=== PATIENT | female | born 2000 | race Caucasian/White ===

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

== ENCOUNTER 2021-07-22 20:12 | Emergency (ER) | payer OTHER ==
[2021-07-22 21:06] LABS: BILIRUBIN,URINE NEGATIVE (NEGATIVE); CLARITY,URINE CLEAR (CLEAR); GLUCOSE, URINE (UA) NEGATIVE (NEGATIVE); KETONES,URINE (UA) NEGATIVE (NEGATIVE); LEUKOCYTE ESTERASE, URINE NEGATIVE (NEGATIVE); NITRITE,URINE NEGATIVE (NEGATIVE); OCCULT BLOOD,URINE LARGE (NEGATIVE); PROTEIN,URINE NEGATIVE (NEGATIVE); UROBILINOGEN,URINE 0.2 (NORMAL) E.U./dL (NORMAL)
[2021-07-22 21:07] LABS: HCG UR QUAL NEGATIVE
[2021-07-22 21:11] LABS: BACTERIA,URINE Few /HPF (None Seen); SQUAMOUS EPITHELIAL CELL,UR FEW Squamous (<= Few); WBC,URINE 0-3 /HPF (0-5)
--- NOTE | 2021-07-22 21:26 | ED Physician Documentation ---
PD HPI FEMALE - Stated complaint Stated Complaint: FEMALE - Chief complaint Chief Complaint: Abd Pain - History obtained from History obtained from: Patient - Additional information Additional information: Patient without significant past medical history presenting for evaluation of lower abdominal cramping for 2 days. Patient was using a vibrator on herself 2 days ago when she felt a pop sensation in the left pelvis and since that time has been having light vaginal spotting and cramping.She is only needed to use a panty liner. She had a Sara IUD removed in January and since that time has had irregular periods. She denies abnormal vaginal discharge. She denies concerns for or STDs.Nothing makes her symptoms better or worse.There is no radiation to the pain. There is no nausea or vomiting.No fever, no dysuria. Review of Systems Constitutional: denies: Fever Nose: denies: Congestion Cardiac: denies: Chest pain / pressure Respiratory: denies: Cough GI: denies: Abdominal Pain, Vomiting : reports: Irregular menses. 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 : None HEENT: None Psych: Depression Musculoskeletal: None Derm: None - Past Surgical History Past Surgical History: Yes HEENT: Tonsil/Adenoidectomy - Present Medications Home Medications: Ambulatory Orders Medication Instructions Recorded Confirmed FLUoxetine [PROzac] 10 mg PO DAILY 06/22/18 06/22/18 busPIRone [Buspar] 5 mg PO BID 07/22/21 07/22/21 - Allergies Allergies/Adverse Reactions: Allergies Allergy/AdvReac Type Severity Reaction Status Date / Time No Known Drug Allergies Allergy Verified 07/22/21 20:17 - Social History Does the pt smoke?: No Smoking Status: Never smoker Does the pt drink ETOH?: No Does the pt have substance abuse?: No - Immunizations Immunizations are current?: Yes - POLST Patient has POLST: No PD ED PE NORMAL - General General: Alert and oriented X 3, No acute distress, Well developed/nourished - HEENT HEENT: Atraumatic, Moist mucous membranes - Neck Neck: Supple, no meningeal sign - Cardiac Cardiac: RRR, Strong equal pulses - Respiratory Respiratory: No respiratory distress, Clear bilaterally - Abdomen Abdomen: Normal bowel sounds, Soft, Non tender - Female Female : Dot Etcher Apprentice 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 (APRIL Dickey), Other (Normal external exam,No vaginal lesions or tenderness,Small amount of blood in vaginal canal, normal-appearing cervix, no foreign bodies, No CMT, no adnexal tenderness or mass) Results - Vitals Vitals: Vital Signs - 24 hr 07/22/21 07/22/21 07/22/21 20:18 20:32 21:32 Temperature 37.1 C 37 C Heart Rate 100 80 72 Respiratory 14 18 17 Rate Blood Pressure 139/93 H 139/88 H 131/70 H O2 Saturation 98 100 99 Oxygen O2 Source Room air - Labs Labs: Laboratory Tests 07/22/21 20:25 Urine Color YELLOW Urine Clarity CLEAR Urine pH 6.0 Ur Specific [place] 1.025 Urine Protein NEGATIVE Urine Glucose (UA) NEGATIVE Urine Ketones NEGATIVE Urine Occult Blood LARGE H Urine Nitrite NEGATIVE Urine Bilirubin NEGATIVE Urine Urobilinogen 0.2 (NORMAL) Ur Leukocyte Esterase NEGATIVE Urine RBC 6-10 H Urine WBC 0-3 Ur Squamous Epith Cells FEW Squamous Urine Bacteria Few Ur Microscopic Review INDICATED Urine Culture Comments NOT INDICATED Urine HCG, Qual NEGATIVE PD MEDICAL DECISION MAKING - ED course ED course: Patient presenting for evaluation of spotting and cramping after using a vibrator 2 days ago.Her abdominal exam is benign and without peritoneal sig ns.There is no reproducible tenderness. Her pelvic exam is unremarkable with no tenderness suggestive of ovarian torsion, hemoperitoneum.Her test is negative. I did offer an ultrasound to evaluate for the presence of an ovarian cyst As that is what her history is suggestive of. However as the patient did not have pain on exam, she agreed to hold off on further testing at this time. She understands strict return precautions if the pain is to return or worsen Or if she were to develop any other symptoms. Departure - Departure Disposition: 01 Home, Self Care Clinical Impression: Pelvic pain in female Condition: Stable Instructions: ED Pelvic Pain [facility] Comments: The exact cause Of your pelvic pain is unclear at this time. It could have been from an ovarian cyst. The pain appears to be improving, which is reassuring and You did not have pain during the exam. As we have discussed, If your pain at any time changes or worsens you should return to the emergency department. I would recommend avoiding any sexual intercourse until the pain has fully resolved. You can try motrin or tylenol for pain. Discharge Date/Time: 07/22/21 21:32
[2021-07-22 21:33] VITALS: BP 131/70
== END 2021-07-22 21:32 | disposition home or self-care (01) ==
LOC: ED 20:12
DX: R10.2 Pelvic and perineal pain (principal)
CPT/HCPCS: 81001; 81003; 81025; 87086; 99282; 99283

== ENCOUNTER 2022-03-25 21:08 | Emergency (ER) | payer OTHER ==
[2022-03-25 21:28] VITALS: BP 137/76
--- NOTE | 2022-03-25 21:37 | ED Physician Documentation ---
PD HPI UPPER EXT INJURY - Stated complaint Stated Complaint: LT HAND FINGER INJURY - Chief complaint Chief Complaint: Ext Problem - History obtained from History obtained from: Patient - Additonal information Additional information: Patient is a 21-year-old female with no significant past medical history presenting for evaluation of left index finger pain that is been present since Tuesday. She was placing a stroller into the trunk of her car and had to move around some totes and believes she struck her hand against something. She has been having pain to this digit since then. She has not tried anything for pain. She has become concerned because the pain has not subsided.It is worse with movements. She is right-hand dominant. 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 : None HEENT: None Psych: Depression Musculoskeletal: None Derm: None - Past Surgical History Past Surgical History: Yes HEENT: Tonsil/Adenoidectomy - Present Medications Home Medications: Ambulatory Orders Medication Instructions Recorded Confirmed FLUoxetine [PROzac] 10 mg PO DAILY 06/22/18 06/22/18 busPIRone [Buspar] 5 mg PO BID 07/22/21 07/22/21 - Allergies Allergies/Adverse Reactions: Allergies Allergy/AdvReac Type Severity Reaction Status Date / Time No Known Drug Allergies Allergy Verified 07/22/21 20:17 - Social History Does the pt smoke?: No Smoking Status: Never smoker Does the pt drink ETOH?: No Does the pt have substance abuse?: No - Immunizations Immunizations are current?: Yes - POLST Patient has POLST: No PD ED PE NORMAL - General General: Alert and oriented X 3, No acute distress, Well developed/nourished - HEENT HEENT: Atraumatic - Respiratory Respiratory: No respiratory distress - Derm Derm: Warm and dry - Extremities Extremities: No deformity, Normal ROM s pain, Other (Tenderness to PIP of left second digit, No swelling, normal range of motion, brisk cap refill) Results - Vitals Vitals: Vital Signs - 24 hr 03/25/22 21:21 Temperature 36.3 C L Heart Rate 94 Respiratory 20 Rate Blood Pressure 137/76 H O2 Saturation 99 Oxygen O2 Source Room air PD MEDICAL DECISION MAKING - ED course Complexity details: reviewed results, re-evaluated patient ED course: Patient evaluated for left index finger pain. X-ray was obtained and is negative for fracture or dislocation. No clinical evidence of infection. Patient was given a finger splint for additional support and counseled to continue with supportive care for the next several days. Departure - Departure Disposition: 01 Home, Self Care Clinical Impression: Strain of left index finger Condition: Stable Instructions: ED Contusion Finger Comments: I do not see signs of a broken or out of place bone on your x-ray. You may have a Bruise or strain to the area causing the pain. Please use anti-inflammatory such as ibuprofen or acetaminophen. We have given you a finger splint which she can use for the next several days for additional support. You can also try ice to the area. I would expect for your pain to be better In the next 3 to 4 days. If you are continuing to have pain then please consider reevaluation with your primary care doctor. Discharge Date/Time: 03/25/22 22:45
--- NOTE | 2022-03-25 22:49 | XRAY Report ---
PROCEDURE: Finger(s) LT INDICATIONS: L index finger TECHNIQUE: AP hand, 2 additional views of the second digit acquired. COMPARISON: None. FINDINGS: Bones: No fractures or dislocations. No suspicious bony lesions. Soft tissues: No suspicious soft tissue calcifications. IMPRESSION: 1. No fracture or dislocation. Reviewed by: Jimenez Melton MD on 03/25/2022 10:47 PM [facility] Approved by: Jimenez Melton MD on 03/25/2022 10:47 PM [facility] Station ID: [id number]
== END 2022-03-25 22:45 | disposition home or self-care (01) ==
LOC: ED 21:08
DX: S66.311A Strain of extensor muscle, fascia and tendon of left index finger at wrist and hand level, initial encounter (principal); W22.8XXA Striking against or struck by other objects, initial encounter
CPT/HCPCS: 99282; 99283

== ENCOUNTER 2022-06-10 14:58 | Emergency (ER) | payer OTHER ==
[2022-06-10 15:07] VITALS: BP 133/68
--- NOTE | 2022-06-10 16:04 | ED Physician Documentation ---
History of Present Illness - Stated complaint Stated Complaint: LEFT KNEE PX - Chief complaint Chief Complaint: Ext Problem - Additonal information Additional information: 21-year-old female here with acute left knee pain sustained when moving heavy furniture 2 weeks ago. [place] a pop in the medial portion of the knee. Him intermittently has been having pain since worse when walking. No swelling. Remote history of left knee injury that she reports was a meniscal tear. She did have physical therapy for a bit which markedly improved her symptoms. Patient has not taken anything for discomfort. She has a normal gait. No knee swelling. 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 HEENT: None Psych: Depression Musculoskeletal: None Derm: None - Past Surgical History Past Surgical History: Yes HEENT: Tonsil/Adenoidectomy - Present Medications Home Medications: Ambulatory Orders Medication Instructions Recorded Confirmed No Known Home Medications 06/10/22 06/10/22 - Allergies Allergies/Adverse Reactions: Allergies Allergy/AdvReac Type Severity Reaction Status Date / Time No Known Drug Allergies Allergy Verified 06/10/22 15:08 - Social History Does the pt smoke?: No Smoking Status: Never smoker Does the pt drink ETOH?: No Does the pt have substance abuse?: No - Immunizations Immunizations are current?: Yes - POLST Patient has POLST: No PD ED PE EXPANDED - General General: Alert, No acute distress - Extremities Extremities: Left knee (Mild tenderness with palpation deep within the medial joint. Normal flexion extension of the knee. No laxity. Negative anterior drawer. Normal gait. Nonantalgic gait.) Results - Vitals Vitals: Vital Signs - 24 hr 06/10/22 06/10/22 06/10/22 15:05 15:09 15:46 Temperature 36.1 C L Heart Rate 80 Respiratory 17 17 17 Rate Blood Pressure 133/68 H O2 Saturation 100 Oxygen O2 Source Room air PD Medical Decision Making - ED course Complexity details: d/w patient ED course: 21-year-old female here with 2 weeks of left medial knee pain sustained after moving heavy furniture and feeling a pop in the knee. However the exam of the knee is entirely benign with no worrisome findings seen. She has no swelling or erythema. No palpable effusion on exam. I deferred imaging as not likely to change decision management. I have advised the patient to wear an Dante bandage when out of bed for the next week or so. I also recommended [id number] ibuprofen and Tylenol. If she finds that her symptoms are not improving with conservative treatment may benefit from follow-up with primary for referral to PT. Departure - Departure Disposition: 01 Home, Self Care Clinical Impression: Left knee sprain Qualifiers: Encounter type: initial encounter Involved ligament of knee: medial collateral ligament Qualified Code(s): S83.412A - Sprain of medial collateral ligament of left knee, initial encounter Condition: Stable Record reviewed to determine appropriate education?: Yes Instructions: ED Sprain Knee Collateral Ligaments Comments: Aleah you sprained your knee about 2 weeks ago when moving the furniture. I expect that with conservative management it will heal well. I recommend you w ear the Dante bandage when out of bed for the next few days. You can take Tylenol and ibuprofen [id number] for discomfort. If you find that the pain is not getting better you would benefit from rereferral to physical therapy as you have previously injured this knee in the past.
== END 2022-06-10 16:10 | disposition home or self-care (01) ==
LOC: ED 14:58
DX: S83.412A Sprain of medial collateral ligament of left knee, initial encounter (principal); X58.XXXA Exposure to other specified factors, initial encounter
CPT/HCPCS: 99281; 99283

== ENCOUNTER 2023-02-13 12:15 | Emergency (ER) | payer OTHER ==
[2023-02-13 12:48] VITALS: O2SAT 100
[2023-02-13 13:07] LABS: BASOPHILS # (AUTO) 0.1 10^3/uL (0.0-0.1); BASOPHILS % (AUTO) 0.4 %; EOSINOPHILS # (AUTO) 0.1 10^3/uL (0.0-0.7); EOSINOPHILS % (AUTO) 0.9 %; HCT - HEMATOCRIT 41.1 % (37.0-47.0); HGB - HEMOGLOBIN 13.4 g/dL (12.0-16.0); LYMPHOCYTES # (AUTO) 3.3 10^3/uL (1.5-3.5); LYMPHOCYTES % (AUTO) 22.8 %; MEAN CORPUSCULAR HEMOGLOBIN 27.5 pg (27.0-31.0); MEAN CORPUSCULAR HGB CONC 32.6 g/dL (32.0-36.0); MEAN CORPUSCULAR VOLUME 84.2 fL (81.0-99.0); MEAN PLATELET VOLUME 9.5 fL (7.9-10.8); MONOCYTES # (AUTO) 0.8 10^3/uL (0.0-1.0); MONOCYTES % (AUTO) 5.4 %; NEUTROPHILS # (AUTO) 10.2 10^3/uL (1.5-6.6); NEUTROPHILS % (AUTO) 70.3 %; PLT - PLATELET COUNT 360 10^3/uL (130-450); RED BLOOD COUNT 4.88 10^6/uL (4.20-5.40); WHITE BLOOD COUNT 14.5 x10^3/uL (4.8-10.8)
[2023-02-13 13:22] LABS: ALBUMIN 4.6 g/dL (3.2-5.5); ALBUMIN/GLOBULIN RATIO 1.4 (1.0-2.2); BILIRUBIN,TOTAL 0.7 mg/dL (0.2-1.0); CALCIUM 9.5 mg/dL (8.5-10.3); CREATININE 0.7 mg/dL (0.6-1.3); POTASSIUM 3.8 mmol/L (3.5-4.5); TOTAL PROTEIN 7.8 g/dL (6.4-8.9)
[2023-02-13 15:13] LABS: BILIRUBIN,URINE NEGATIVE (NEGATIVE); GLUCOSE, URINE (UA) NEGATIVE (NEGATIVE); KETONES,URINE (UA) NEGATIVE (NEGATIVE); LEUKOCYTE ESTERASE, URINE NEGATIVE (NEGATIVE); NITRITE,URINE NEGATIVE (NEGATIVE); OCCULT BLOOD,URINE NEGATIVE (NEGATIVE); PH,URINE 5.5 PH (5.0-7.5); PROTEIN,URINE 30 mg/dL (NEGATIVE); UROBILINOGEN,URINE 0.2 (NORMAL) E.U./dL (NORMAL)
[2023-02-13] MEDS ORDERED: ONDANSETRON ODT 4 MG TABLET TL STA (15:14)
--- NOTE | 2023-02-13 15:15 | ED Physician Documentation ---
PD HPI ABD PAIN - Stated complaint Stated Complaint: N/V BLOOD,DIZZINESS,LIGHTHEADED - Chief complaint Chief Complaint: Abd Pain - History obtained from History obtained from: Patient - Additional information Additional information: 22-year-old woman who has been vomiting for the last 6 months. She states that she wakes up almost every day around 3 AM and throws up and then feels better after a couple of hours. Some days it is better, some days worse. She has not noticed any triggers and there is no relation to her menses. No history of abdominal surgeries. No possibility of . Recently saw her physician and was prescribed omeprazole for this which has not yet helped. Today had blood-tinged vomit which is new. Does use cannabis edibles almost daily. 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 : None HEENT: None Psych: Depression Musculoskeletal: None Derm: None - Past Surgical History Past Surgical History: Yes HEENT: Tonsil/Adenoidectomy - Present Medications Home Medications: Ambulatory Orders Medication Instructions Recorded Confirmed Amitriptyline [Elavil] 25 mg PO HS #60 tablet 02/13/23 Fluconazole 150 mg PO DAILY 02/13/23 02/13/23 Omeprazole Magnesium 20 mg PO DAILY 02/13/23 02/13/23 Ondansetron Odt [Zofran] 4 mg TL Q6H PRN #30 tablet 02/13/23 - Allergies Allergies/Adverse Reactions: Allergies Allergy/AdvReac Type Severity Reaction Status Date / Time No Known Drug Allergies Allergy Verified 06/10/22 15:08 - Social History Does the pt smoke?: No Smoking Status: Never smoker Does the pt drink ETOH?: No Does the pt have substance abuse?: No - Immunizations Immunizations are current?: Yes - POLST Patient has POLST: No PD ED PE NORMAL - Vitals Vital signs reviewed: Yes - General General: Alert and oriented X 3, No acute distress - Abdomen Abdomen: Normal bowel sounds, Soft, Non tender - Neuro Neuro: Alert and oriented X 3, Normal speech Results - Vitals Vitals: Vital Signs - 24 hr 02/13/23 12:45 Temperature 36.1 C L Heart Rate 69 Respiratory 20 Rate Blood Pressure 144/78 H O2 Saturation 100 Oxygen O2 Source Room air - Labs Labs: Laboratory Tests 02/13/23 02/13/23 02/13/23 12:56 13:03 13:03 WBC 14.5 H RBC 4.88 Hgb 13.4 Hct 41.1 MCV 84.2 MCH 27.5 MCHC 32.6 RDW 13.0 Plt Count 360 MPV 9.5 Neut # (Auto) 10.2 H Lymph # (Auto) 3.3 Jerome # (Auto) 0.8 Eos # (Auto) 0.1 Baso # (Auto) 0.1 Absolute Nucleated RBC 0.00 Nucleated RBC % 0.0 Sodium 138 Potassium 3.8 Chloride 105 Carbon Dioxide 26 Anion Gap 7.0 BUN 12 Creatinine 0.7 Estimated GFR (MDRD) 106 Glucose 87 Calcium 9.5 Total Bilirubin 0.7 AST 19 ALT 23 Alkaline Phosphatase 99 Total Protein 7.8 Albumin 4.6 Globulin 3.2 Albumin/Globulin Ratio 1.4 Lipase 22 Urine Color YELLOW Urine Clarity HAZY Urine pH 5.5 Ur Specific [place] >=1.030 H Urine Protein 30 H Urine Glucose (UA) NEGATIVE Urine Ketones NEGATIVE Urine Occult Blood NEGATIVE Urine Nitrite NEGATIVE Urine Bilirubin NEGATIVE Urine Urobilinogen 0.2 (NORMAL) Ur Leukocyte Esterase NEGATIVE Urine RBC 0-5 Urine WBC 4-5 Ur Squamous Epith Cells FEW Squamous Amorphous Sediment Marked Urine Bacteria Rare Ur Microscopic Review INDICATED Urine Culture Comments NOT INDICATED Urine HCG, Qual NEGATIVE PD Medical Decision Making - ED course ED course: 22-year-old presents with basically subacute to chronic daily vomiting in the setting of daily marijuana use. The pattern actually does not quite fit the pattern of CHS but that is considered. Work-up here demonstrates normal CBC save mild leukocytosis. She is not tender. CMP normal. test negative. She was feeling much better after Zofran and she wonders if there was a prophylactic she could take for the vomiting and nightly amitriptyline would be reasonable for that pending follow-up. She may benefit from referral for upper endoscopy and GI evaluation. Departure - Departure Disposition: 01 Home, Self Care Clinical Impression: Vomiting Condition: Good Record reviewed to determine appropriate education?: Yes Instructions: ED Nausea Vomiting Prescriptions: Amitriptyline [Elavil] 25 mg PO HS #60 tablet Ondansetron Odt [Zofran] 4 mg TL Q6H PRN #30 tablet PRN Reason: Nausea / Vomiting Comments: I am prescribing amitriptyline as a prophylactic medication that she could take at night for the vomiting. And also Zofran for as needed for when you actually feel nauseous. Follow-up with your primary care physician, I would recommend consideration for referral to GI for evaluation and consideration for upper endoscopy. Return if worse. Forms: PCP List
[2023-02-13 15:19] LABS: CLARITY,URINE HAZY (CLEAR); HCG UR QUAL NEGATIVE
[2023-02-13 15:33] LABS: AMORPHOUS SEDIMENT,UR Marked /LPF; BACTERIA,URINE Rare /HPF (None Seen); RBC,URINE 0-5 /HPF (0-5); SQUAMOUS EPITHELIAL CELL,UR FEW Squamous (<= Few)
[2023-02-13 16:25] VITALS: BP 120/65
== END 2023-02-13 16:19 | disposition home or self-care (01) ==
LOC: ED 12:15
DX: R11.2 Nausea with vomiting, unspecified (principal)
CPT/HCPCS: 36415; 80053; 81001; 81025; 83690; 85025; 99283; 99284; Q0162; 81003; 87086

== ENCOUNTER 2023-02-14 06:02 | Emergency (ER) | payer OTHER ==
--- NOTE | 2023-02-14 06:41 | ED Physician Documentation ---
PD HPI NVD - Stated complaint Stated Complaint: VOMIT, NAUSEA - Chief complaint Chief Complaint: Abd Pain - History obtained from History obtained from: Patient - Additonal information Additional information: Patient is a 22-year-old female presenting for evaluation of nausea and vomiting. Patient states that her symptoms have been ongoing for 6 months. Yesterday she was seen here because she had an episode with some blood-tinged in her emesis and was evaluated with labs. She was given prescriptions for Zofran as well as started on amitriptyline and advised that she would likely need referral to GI for further testing. She also reports that she saw a new PCP on for the first time and relayed her recent symptoms and was started on omeprazole which she has been taking daily. She states yesterday she was able to tolerate soup and some salad. She says that she has nausea every morning when she wakes up and it usually goes away after a few hours. This morning she had cereal. She was still feeling nauseous and then took a dose of Zofran that she was prescribed. She states that it was dissolvable but it tasted differently than the when she received yesterday and kind of felt like it made her stomach more upset and she threw up. She threw up the cereal she had just eaten. She denies any further episodes of hematemesis. She reports having a sore throat. No abdominal pain. No diarrhea. She does Use cannabis edibles but the last time was 2 days ago. She denies any changes to her weight with ongoing nausea for 6 months. Review of Systems Constitutional: denies: Fever Throat: reports: Sore throat Cardiac: denies: Chest pain / pressure Respiratory: denies: Dyspnea GI: reports: Nausea. 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 : None HEENT: None Psych: Depression Musculoskeletal: None Derm: None - Past Surgical History Past Surgical History: Yes HEENT: Tonsil/Adenoidectomy - Present Medications Home Medications: Ambulatory Orders Medication Instructions Recorded Confirmed Amitriptyline [Elavil] 25 mg PO HS #60 tablet 02/13/23 02/14/23 Fluconazole 150 mg PO DAILY 02/13/23 02/14/23 Omeprazole Magnesium 20 mg PO DAILY 02/13/23 02/14/23 Ondansetron Odt [Zofran] 4 mg TL Q6H PRN #30 tablet 02/13/23 02/14/23 Metoclopramide [Reglan] 10 mg PO Q6H PRN #20 tablet 02/14/23 - Allergies Allergies/Adverse Reactions: Allergies Allergy/AdvReac Type Severity Reaction Status Date / Time No Known Drug Allergies Allergy Verified 02/14/23 06:14 - Social History Does the pt smoke?: No Smoking Status: Never smoker Does the pt drink ETOH?: No Does the pt have substance abuse?: No - Immunizations Immunizations are current?: Yes - POLST Patient has POLST: No PD ED PE NORMAL - General General: Alert and oriented X 3, No acute distress, Well developed/nourished - HEENT HEENT: Atraumatic, Moist mucous membranes, Pharynx benign (No oral swelling, erythema or exudate) - Neck Neck: Supple, no meningeal sign - Cardiac Cardiac: RRR, No murmur - Respiratory Respiratory: No respiratory distress, Clear bilaterally - Abdomen Abdomen: Normal bowel sounds, Soft, Non tender, Non distended - Derm Derm: Warm and dry - Neuro Neuro: Alert and oriented X 3, No motor deficit, Normal speech Results - Vitals Vitals: Vital Signs - 24 hr 02/14/23 02/14/23 06:11 07:18 Temperature 37.8 C Heart Rate 68 61 Respiratory 16 18 Rate Blood Pressure 144/78 H 139/72 H O2 Saturation 100 98 Oxygen O2 Source Room air - Labs Labs: Laboratory Tests 02/14/23 02/14/23 06:30 06:40 POC Whole Bld Glucose 94 Group A Strep Rapid Negative PD Medical Decision Making - ED course Complexity details: reviewed results, re-evaluated patient, d/w patient ED course: Pt is a 22 yo F presenting for months of nausea with some vomiting. She reports daily nausea in the mornings that usually gets better. SHe was seen yesterday for her symptoms after noticing some blood in an episode of emesis. Labs unremarkable other than a mildly elevated WBC. She was given Rx for zofran and started on amitriptyline. She reports the zofran left an odd taste in her mouth today after she took it and had 1 episode of emesis. No blood today. Today she has a low grade fever of 37.8 with otherwise stable vitals. She reports ongoing nausea but not continued vomiting. Last edible use was 2 days ago, no other substances. Reports a sore throat. Rapid strep is negative. Blood glucose today is 94. She was given apple juice which she tolerated without issue. Her abdominal exam is entirely benign with no tenderness, rebound or guarding thus I do not feel emergent imaging today is indicated. Pt appears frustrated with her ongoing symptoms, felt her PCP didn't really listen to her concerns last . She has been taking the omeprazole she was given from her PCP. Explained that omeprazole and amitrityptiline take some time to get into your system to see if they will help. In the meanwhile, we can try a different medication for her nausea. Offered suppository which she did not want. Will rx Reglan to give this a try. Pt also counseled that she needs follow up with her PCP and may benefit from GI referral for further workup. I don't see an indication for an emergent endoscopy today. Pt advised on concerning symptoms to return for. Departure - Departure Disposition: Home, Self Care Clinical Impression: Nausea & vomiting, Sore throat Condition: Stable Instructions: ED Nausea Vomiting Prescriptions: Metoclopramide [Reglan] 10 mg PO Q6H PRN #20 tablet PRN Reason: Nausea / Vomiting Comments: Your strep test is negative. Your blood sugar is normal. You have a low grade fever of 100. You may be coming down with a viral infection. I would recommend taking it easy today with trying to stay hydrated with small amounts of fluids/food throughout the day vs larger meals. Continue with the amitriptyline and omeprazole you have a recently been prescribed. It will take several weeks for these medications to get into your system and to know if they are helpful. I am sending a different antinausea medication to your pharmacy. You can try this to see if it works better than the ondansetron that you were prescribed yesterday. Please call your primary care doctor today to request a referral to GI as you would likely benefit from further testing and evaluation. Forms: PCP List, Activity restrictions Discharge Date/Time: 02/14/23 07:18
[2023-02-14 06:44] LABS: RAPID STREP SCREEN Negative (Negative)
[2023-02-14 07:20] VITALS: BP 139/72; O2SAT 98
== END 2023-02-14 07:18 | disposition home or self-care (01) ==
LOC: ED 06:02
DX: R11.2 Nausea with vomiting, unspecified (principal); R07.0 Pain in throat
CPT/HCPCS: 87070; 87430; 99283

== ENCOUNTER 2023-11-16 23:02 | Emergency (ER) | payer BC, OTHER ==
[2023-11-16 23:10] VITALS: BP 150/90; O2SAT 99
[2023-11-16] MEDS: KETOROLAC 30 MG/ML VIAL IM STA (23:30)
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
== END 2023-11-16 23:31 | disposition home or self-care (01) ==
LOC: ED 23:02
DX: T21.11XA Burn of first degree of chest wall, initial encounter (principal); X11.8XXA Contact with other hot tap-water, initial encounter
CPT/HCPCS: 96372; 99283